=== PATIENT | female | born 1965 | race Caucasian/White ===

== ENCOUNTER 2019-03-18 05:08 | Inpatient (IN) | payer SELFPAY ==
[2019-03-18 07:34] LABS: Iron 14 ug/dL (50-170); Iron Binding Capacity, Total 500 mcg/dL (265-497)
[2019-03-18 07:37] LABS: PTT 29.9 SEC (22.9-36.1); Prothrombin Time 13.5 SEC (12.0-14.7)
[2019-03-18 07:40] LABS: #Basophils 0.1 thou/uL (0.0-0.2); #Eosinphils 0.1 thou/uL (0.0-0.7); #Lymphocytes 1.7 thou/uL (1.20-3.40); #Monocytes 0.4 thou/uL (0.11-0.59); #Neutrophils 1.3 thou/uL (1.40-6.50); %Basophils 2.3 % (0.0-1.0); %Eosinophils 3.6 % (0.0-10.0); %Lymphocytes 46.6 % (21.0-51.0); %Monocytes 11.8 % (0.0-10.0); %Neutrophils 35.8 % (42.0-75.0); Hemoglobin 9.4 g/dL (12.0-16.0); MDiff Complete? YES; Mean Corpuscular HGB CONC 31.8 g/dL (32.0-36.0); Mean Corpuscular Volume 72.2 fL (78.0-98.0); Mean Platelet Volume 8.2 fL (7.4-10.4); Microcytosis SLIGHT = 6-15 cells (100X) (0-5/hpf); Platelet Count 261 thou/uL (130-400); RBC Distribution Width 20.5 % (11.5-14.5); Red Blood Cell (RBC) Count 4.07 mill/uL (4.20-5.40); Target Cells SLIGHT = 2-5 cells (100X) (0-1/hpf); White Blood Cell (WBC) Count 3.7 thou/uL (4.8-10.8)
[2019-03-18 09:19] VITALS: BMI 23.3
[2019-03-18] MEDS ORDERED: Sodium Chloride 0.9% 1,000 ML IV SCH (10:02)
[2019-03-18] MEDS ORDERED: Acetaminophen 325 MG TAB PO PRN (10:02)
[2019-03-18] MEDS ORDERED: Ondansetron PF 4 MG/2 ML Vial IVP PRN ×2 (10:02→15:57)
[2019-03-18] MEDS ORDERED: Ondansetron HCl/PF 4 MG/2 ML Vial IVP PRN (12:12)
[2019-03-18] MEDS ORDERED: PROPOFOL 200 MG/20 ML VIAL ONE (13:11)
[2019-03-18] MEDS ORDERED: Bisacodyl 5 MG TAB PO PRN (15:57)
[2019-03-18] MEDS ORDERED: Iron Sucrose Complex 200 MG in Sodium Chloride 0.9% 250 ML 250 ML IVPB SCH (16:00)
[2019-03-18] MEDS ORDERED: Iron, Sodium Ferric Gluconate 250 MG in Sodium Chloride 0.9% 100 ML IVPB SCH (16:15)
--- NOTE | 2019-03-18 16:19 | HP ---
PRIMARY CARE PROVIDER: None. CHIEF COMPLAINT: Abdominal pain. HISTORY OF PRESENT ILLNESS: Ms. Lucas is a pleasant 53-year-old lady, who was seen at [facility] on March 18, 2019. On , she had lunch. While eating lunch, she started having nausea and vomiting. She reports vomiting multiple times. She also reports abdominal pain , epigastric, burning as well as sharp, 7/10 at its worst, accompanied by nausea and vomiting, with no known aggravating or relieving factors. The following day, she started having diarrhea. She reports multiple dark stools. She presented to the emergency room because of ongoing abdominal pain, vomiting, and diarrhea. Please note that she initially presented to the emergency room at [place] and was subsequently transferred to this facility. REVIEW OF SYSTEMS: All other systems were reviewed and found to be negative. PAST MEDICAL HISTORY: Peptic ulcer disease and hypothyroidism. PAST SURGICAL HISTORY: Gastric bypass surgery, bowel obstruction surgery, hysterectomy, cholecystectomy, and what appears to be volvulus surgery. SOCIAL HISTORY: The patient drinks 10 to 15 beers a day. She denies recreational drug use or tobacco use. FAMILY HISTORY: Significant for cerebrovascular accident and coronary artery disease in her mother. ALLERGIES: SULFA. CURRENT MEDICATIONS: None. PHYSICAL EXAMINATION: GENERAL: On examination, Ms. Lucas is awake and alert, not in acute distress. VITAL SIGNS: Blood pressure is 169/88, pulse 79, respiratory rate 14, and oxygen saturation 96% on room air. Temperature is 99.1 degrees Fahrenheit. BMI is 23.4. EYES: No scleral icterus. No conjunctival pallor. ENT: Moist mucosal membranes. No oropharyngeal erythema or exudates. NECK: Supple, nontender. Trachea is midline. RESPIRATORY: Accessory muscles of breathing are not active. Chest wall movements are symmetric bilaterally. Lungs are clear to auscultation without wheeze, rhonchi, or crepitations. CARDIOVASCULAR: S1 and S2 are heard, regular. Peripheral pulses palpable. No carotid bruit. No pericardial rub. ABDOMEN: Mild epigastric tenderness. No guarding or rigidity. Bowel sounds heard. NEUROLOGIC: Cranial nerves 2 through 12 intact, deep tendon reflexes 2+. MUSCULOSKELETAL: Power is 5/5 in all 4 extremities. SKIN: No rashes or subcutaneous nodules. LYMPHATIC: No cervical lymphadenopathy. PSYCHIATRIC: Normal mood, normal affect. The patient is oriented to person, place, and time. LABORATORY DATA: Ms. Lucas's labs and investigations were reviewed. Microcytic anemia with hemoglobin 9.4, leukopenia with white count 3700, normal platelet count. INR 1.0. Decreased iron of 14, elevated TIBC of 500, and normal ferritin of 17.44. She is mildly hyponatremic with a sodium of 134, normal potassium, normal creatinine, normal total bilirubin, elevated AST of 78, normal ALT, normal alkaline phosphatase, and normal troponin I. Lipase is elevated at 193. ASSESSMENT AND PLAN: Ms. Lucas is a pleasant 53-year-old lady, who was seen at [facility] on March 18, 2019. Her problem list includes: 1. Nausea and vomiting: Ms. Lucas is presenting to the emergency room with nausea and vomiting, most likely secondary to acute pancreatitis, given her elevated lipase level. She will be admitted to the hospital for further management. Gastroenterology Service is being consulted for opinion and help with management. 2. Gastrointestinal bleed: Suspected, based on the patient's anemia as well as history of dark stools. We will await GI Service input. 3. Hyponatremia: Mild, likely asymptomatic. 4. Hypothyroidism: The patient is not taking any medications for hypothyroidism , although she reports having a history of hypothyroidism. We will check TSH level. 5. Iron deficiency: We will administer intravenous iron and start her on oral iron. 6. Daily alcohol use: The patient has been counseled regarding alcohol cessation. We will start her on ASE protocol. Many thanks for allowing me to participate in your patient's care. Please feel free to contact me with any questions or concerns. LEVEL OF RISK: Moderate. LEVEL OF COMPLEXITY: Moderate. Job ID: [id number] MTDD
[2019-03-18] MEDS: Pantoprazole 80 MG in Sodium Chloride 0.9% 100 ML IVP SCH (16:56)
[2019-03-18] MEDS: Ferrous Sulfate 325 MG TAB PO SCH (16:56)
[2019-03-18] MEDS: Ondansetron ODT 4 MG TAB SL PRN (16:57)
[2019-03-18] MEDS: Morphine 4 MG/ML VIAL SLOW IVP PRN ×2 (16:57→21:09)
[2019-03-18] MEDS ORDERED: Nicotine 21 MG PATCH TD SCH (17:00)
[2019-03-18] MEDS: Sodium Chloride 0.9% 1,000 ML IV SCH (17:08)
[2019-03-19] MEDS: Sodium Chloride 0.9% 1,000 ML IV SCH ×2 (01:07→17:38)
[2019-03-19] MEDS: Pantoprazole 80 MG in Sodium Chloride 0.9% 100 ML IVP SCH (01:35)
[2019-03-19] MEDS: Morphine 4 MG/ML VIAL SLOW IVP PRN ×5 (03:11→21:44)
[2019-03-19 04:54] LABS: #Basophils 0.1 thou/uL (0.0-0.2); #Eosinphils 0.1 thou/uL (0.0-0.7); #Lymphocytes 1.7 thou/uL (1.20-3.40); #Monocytes 0.7 thou/uL (0.11-0.59); #Neutrophils 3.8 thou/uL (1.40-6.50); %Basophils 1.1 % (0.0-1.0); %Eosinophils 1.7 % (0.0-10.0); %Lymphocytes 26.1 % (21.0-51.0); %Monocytes 11.4 % (0.0-10.0); %Neutrophils 59.8 % (42.0-75.0); Hemoglobin 9.2 g/dL (12.0-16.0); Mean Corpuscular HGB CONC 31.4 g/dL (32.0-36.0); Mean Corpuscular Volume 73.4 fL (78.0-98.0); Mean Platelet Volume 8.5 fL (7.4-10.4); Platelet Count 246 thou/uL (130-400); RBC Distribution Width 20.5 % (11.5-14.5); Red Blood Cell (RBC) Count 3.99 mill/uL (4.20-5.40); White Blood Cell (WBC) Count 6.4 thou/uL (4.8-10.8)
[2019-03-19 05:19] LABS: ALT (SGPT) 34 U/L (8-55); AST (SGOT) 72 U/L (5-34); Albumin 3.8 g/dL (3.5-5.0); Alkaline Phosphatase 83 U/L (40-150); Anion Gap 13 mmol/L (10-20); BUN (Urea Nitrogen) Less than 4 mg/dL (9.8-20.1); Calc. Creatinine Clearance 108 mL/min (70-130); Calcium 8.1 mg/dL (7.8-10.44); Carbon Dioxide 25 mmol/L (22-29); Chloride 101 mmol/L (98-107); Estimated GFR-MDRD Greater than 90; Globulin 3.1 g/dL (2.4-3.5); Glucose 79 mg/dL (70-105); Lipase 158 U/L (8-78); Protein, Total 6.9 g/dL (6.0-8.3); Sodium 136 mmol/L (136-145)
[2019-03-19] MEDS: Ondansetron ODT 4 MG TAB SL PRN (08:01)
[2019-03-19] MEDS: Ferrous Sulfate 325 MG TAB PO SCH ×2 (08:01→17:31)
--- NOTE | 2019-03-19 13:43 | CON ---
DATE OF CONSULTATION: 03/18/2019 REASON FOR CONSULTATION: Abdominal pain, history of passing black tarry stool. HISTORY OF PRESENT ILLNESS ON ADMISSION: Brielle Lucas is a 53-year-old female, seen in the ER today with abdominal pain and also history of passing black tarry stool. The patient has past history of bleeding peptic ulcer in the past. Her last EGD was done not in this hospital and somewhere else and she does not really know exactly where it was. She thinks it was done in [facility]. The patient has been having abdominal pain over the last couple of weeks. The pain is over the epigastric area. The pain is localized and burning in nature and at times crampy in nature. Her tells me that every time she tries to eat even small amount of meat, after a while the food comes up. She had no painful swallowing. The patient is status post gastric bypass in [place], I believe in 2005 and had another surgery because of some adhesions and had laparotomy subsequently. The patient is also status post laparoscopic cholecystectomy. The patient was hospitalized here in this hospital in 2017 with a bowel obstruction. She was seen by Dr. Steff Whitman and underwent surgery and was found to have bowel obstruction at the small bowel. She underwent a segmental resection of small bowel at that time. The patient's bowel movements are fairly regular. She has had no stool over the last 48 hours. The last BM was about 2 days ago on Tuesday. The patient also has previous history of pancreatitis in the past. The other relevant history is that she was hospitalized in 2013 with attempted suicide, and she took multiple doses of Effexor. Apparently, she has history of depression and anxiety. She has no other relevant history. ALLERGIES: SULFA AND HYDROCODONE. SOCIAL HISTORY: The patient is remarried. Her now is Lance. Her old name was Brielle Servin. She has not been a smoker. Denies drug abuse. However, she does drink alcohol as much as 20 to 30 cans of beer everyday. MEDICAL ILLNESS: 1. Anxiety and depression. 2. Obesity, status post gastric bypass with weight loss of more than 100 pounds. 3. Past history of bleeding peptic ulcer. 4. Laparotomy for bowel obstruction in [address] Whitman. 5. Status post laparoscopy cholecystectomy. She has no hypertension, diabetes, or asthma, etc. FAMILY HISTORY: There is a strong family history of heart disease on mother side. There is also a questionable history that her mother had some brain tumor. MEDICATION LIST: Reviewed. REVIEW OF SYSTEMS: A 10-point system reviewed. 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 No TIA. No syncope. No dizziness. RESPIRATORY: No history of chronic cough, hemoptysis, or dyspnea. CARDIOVASCULAR: No chest pain. No palpitation. No dyspnea, orthopnea, or PND. GI: Abdominal pain which is chronic in nature. History of nausea, vomiting, and also black tarry stool. : No dysuria, hematuria, or frequent urination. MUSCULOSKELETAL: Unremarkable. NEUROENDOCRINE: Unremarkable. HEMATOLOGIC: Unremarkable. PSYCHIATRIC: Past history of depression and anxiety. She is not on any medications at this time. HEENT: Unremarkable. PHYSICAL EXAMINATION: GENERAL: She appears very comfortable. No distress. VITAL SIGNS: Afebrile. Pulse is 69, blood pressure 156/76. HEENT: Conjunctivae are clear. NECK: Supple. No adenitis or thyromegaly noted. CARDIOVASCULAR: First second heart sounds heard. LUNGS: Clear to auscultation. ABDOMEN: Soft. Abdomen is nondistended. Abdomen is tender over the epigastric area. There is no rebound or guarding. No organomegaly or masses. Bowel sounds normal. EXTREMITIES: Reveal no edema. LABORATORY DATA: CBC; WBC 3700, hemoglobin 9.4, hematocrit 29.4, MCV 72.2, platelet count 261,000, polymorphs 35, lymphocytes 46, monocytes 11. Serum iron is very low at 10 to 14 and TIBC very high at 500, but her ferritin level is 17.44. I do not see the chemistry panel in the lab. CLINICAL IMPRESSION: A 53-year-old female with abdominal pain, nausea, vomiting, history of black tarry stool. She has had no stool over the last 48 hours. Her blood count is slightly low, but not terribly low. She has a past history of peptic ulcer and also has past history of pancreatitis. 1. Status post gastric bypass surgery. 2. Status post laparotomy for bowel obstruction in 2017. 3. Status post laparoscopic cholecystectomy. 4. Anxiety and depression. 5. Alcohol abuse. PLAN: 1. PPI. 2. We will plan for EGD later on today and I will make further recommendation. Because of , I believe she should probably have a colonoscopy during this admission. Job ID: [id number]
--- NOTE | 2019-03-19 14:37 | OP ---
DATE OF PROCEDURE: 03/18/2019 PROCEDURE PERFORMED: Esophagogastroduodenoscopy. PREOPERATIVE DIAGNOSES: A 53-year-old female with abdominal pain, history of black tarry stool, and anemia. She has had a previous gastric bypass surgery. The patient underwent EGD because of abdominal pain and history of black tarry stool. POSTOPERATIVE DIAGNOSIS: 1. Normal esophageal mucosa. 2. The anastomotic area appears healthy and does not show any inflammation or any ulceration. 3. Both afferent and efferent loop entered without difficulty. No pathology seen. DESCRIPTION OF PROCEDURE: The patient was placed on the left lateral position and was given sedation by Anesthesia Department. A Pentax video gastroscope under direct vision passed down the oropharynx past the GE junction. The patient has had a previous gastric bypass. The anastomotic area appears healthy except for large amount of mucus. Water was irrigated and washed out. . The anastomotic area appeared very healthy. Both afferent and efferent loop entered without difficulty. The afferent loop looked healthy and no pathology. The efferent loop . I do not see any pathology in the jejunum. appeared normal. OVERALL IMPRESSION: Negative exam. RECOMMENDATIONS: 1. Clear liquid diet. 2. Obtain chemistry panel and serum lipase. 3. Follow up H and H. Job ID: [id number]
[2019-03-19] MEDS: Potassium Chloride 20 MEQ TAB PO SCH ×2 (17:31→20:27)
--- NOTE | 2019-03-19 21:13 | PDOC.PN ---
- Subjective Encounter Start Date: 03/19/19 Encounter Start Time: 20:35 Subjective: f/u for abd pain and likely pancreatitis with negative findings on EGD. -: Feels better overall with conservative mgmt and attempting soft diet -: this pm. - Objective MAR Reviewed: Yes Vital Signs & Weight: Vital Signs (12 hours) Temp Pulse Resp BP BP BP Pulse Ox 03/19/19 20:00 98.3 F 61 20 164/84 H 164/84 H 99 03/19/19 16:00 98.2 F 63 16 145/67 H 100 03/19/19 12:00 99.1 F 67 18 150/76 H 100 Weight Admit Weight 149 lb 6.4 oz Weight 149 lb 6.4 oz I&O: 03/18/19 03/19/19 03/20/19 06:59 06:59 06:59 Intake Total 3220 2976 Balance 3220 2976 Result Diagrams: 03/19/19 04:09 03/19/19 04:09 Additional Labs: Laboratory Tests 03/18/19 03/18/19 03/18/19 01:05 07:03 07:03 WBC 3.7 L Hgb 9.4 L MCV 72.2 L Potassium 3.8 Iron 14 L TIBC 500 H Ferritin Total Bilirubin AST ALT Lipase TSH 3rd Generation 03/18/19 03/18/19 03/18/19 07:03 16:18 16:18 WBC Hgb MCV Potassium Iron TIBC Ferritin 17.44 Total Bilirubin AST ALT Lipase 146 H TSH 3rd Generation 5.3452 H 03/19/19 04:09 WBC Hgb MCV Potassium Iron TIBC Ferritin Total Bilirubin 1.0 AST 72 H ALT 34 Lipase 158 H TSH 3rd Generation Radiology Reviewed by me: Yes (EGD - negative) Phys Exam - Physical Examination Constitutional: NAD HEENT: PERRLA, sclera anicteric, oral pharynx no lesions Neck: no nodes, no JVD, supple, full ROM Respiratory: no wheezing, no rales, no rhonchi, clear to auscultation bilateral S1, S2 Cardiovascular: RRR, no significant murmur, no rub, gallop mild TTP in mid-epigastrium Gastrointestinal: soft, no distention, positive bowel sounds Musculoskeletal: no edema, pulses present Neurological: normal sensation, moves all 4 limbs Psychiatric: A&O x 3 Skin: normal turgor, cap refill <2 seconds Dx/Plan (1) Epigastric abdominal pain Code(s): R10.13 - EPIGASTRIC PAIN Status: Acute Comment: Secondary to #1, improved with conservative mgmt (2) Acute pancreatitis Code(s): K85.90 - ACUTE PANCREATITIS WITHOUT NECROSIS OR INFECTION, UNSP Status: Acute Qualifiers: Pancreatitis type: alcohol induced Comment: Suspected ETOH etiology, counseling regarding cessation, supportive mgmt (3) Hypokalemia Code(s): E87.6 - HYPOKALEMIA Status: Acute Comment: KCL supplementation, repeat K+ level in am (4) Iron deficiency anemia Code(s): D50.9 - IRON DEFICIENCY ANEMIA, UNSPECIFIED Status: Chronic Qualifiers: Iron deficiency anemia type: inadequate dietary iron intake Qualified Code( s): D50.8 - Other iron deficiency anemias Comment: FeSO4 325mg BID - Plan social 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
[2019-03-20] MEDS: Pantoprazole 80 MG in Sodium Chloride 0.9% 100 ML IVP SCH (03:20)
[2019-03-20] MEDS: Morphine 4 MG/ML VIAL SLOW IVP PRN (04:17)
[2019-03-20 05:50] LABS: Anion Gap 13 mmol/L (10-20); BUN (Urea Nitrogen) Less than 4 mg/dL (9.8-20.1); Calc. Creatinine Clearance 114 mL/min (70-130); Calcium 8.4 mg/dL (7.8-10.44); Carbon Dioxide 23 mmol/L (22-29); Chloride 107 mmol/L (98-107); Estimated GFR-MDRD Greater than 90; Glucose 86 mg/dL (70-105); Lipase 115 U/L (8-78); Potassium 3.5 mmol/L (3.5-5.1); Sodium 139 mmol/L (136-145)
[2019-03-20] MEDS: Sodium Chloride 0.9% 1,000 ML IV SCH (06:06)
[2019-03-20 07:36] VITALS: BP 136/67; TEMP 98.5
[2019-03-20] MEDS: Ferrous Sulfate 325 MG TAB PO SCH (07:38)
--- NOTE | 2019-03-20 08:19 | PRG ---
DATE OF SERVICE: 03/19/2019 SUBJECTIVE: This is a 53-year-old female with chronic alcohol abuse, persistent abdominal pain, nausea, and vomiting. She also has a history of passing black stools. An EGD done yesterday, which revealed no pathology. The patient has a previous gastric bypass surgery. The esophageal lumen no pathology. The patient also has abdominal pain. Her serum lipase is slightly elevated. The lipase is 158 today. Her liver function tests are normal except for AST of 72. Serum lytes shows potassium 3, otherwise the lytes are normal. The patient has hypothyroidism before she stopped medication for a while. Her TSH level is high at 5.34. Her CBC today shows no change from admission. Hemoglobin 9.2, hematocrit 29.3. OBJECTIVE: GENERAL: Appears comfortable, in no acute distress. VITAL SIGNS: Afebrile. Pulse is 63, blood pressure 145/67. HEENT: Conjunctivae clear. CARDIOVASCULAR SYSTEM: First and second heart sounds heard. LUNGS: Clear to auscultation. ABDOMEN: Soft. No organomegaly. Minimally tender in the epigastric area . IMPRESSION: 1. Abdominal pain, possibly related to mild pancreatitis. The lab numbers are really not that high. 2. History of alcohol abuse. 3. Previous gastric bypass surgery. RECOMMENDATIONS: 1. May consider starting the patient on Synthroid because of history of hypothyroidism and elevated TSH. 2. Replace potassium. 3. Advance diet to regular diet and see how she tolerates. Job ID: [id number]
--- NOTE | 2019-03-20 11:03 | PRG ---
DATE OF SERVICE: 03/20/2019 SUBJECTIVE: This is a 53-year-old female, hospitalized with abdominal pain, nausea, vomiting, and history of black tarry stool. She had an EEG done over the weekend, which was negative. Serum lipase is slightly elevated. She has history of chronic alcohol intake and she drank as much as 20 to 30 cans of beer. Abdominal pain markedly improved. She does not have any nausea or vomiting. She was started on a regular diet yesterday and she is tolerating diet. This morning, she had a stool and stool is normal in color. PHYSICAL EXAMINATION: GENERAL: She appears very comfortable. VITAL SIGNS: Afebrile, pulse is 61, blood pressure 136/67. CARDIOVASCULAR: First and second heart sounds normal. LUNGS: Clear to auscultation. ABDOMEN: Soft. No organomegaly. No tenderness. No masses. RECOMMENDATIONS: 1. Iron supplement. 2. May have to start the patient back on Synthroid. 3. From GI standpoint, the patient can be discharged home today. The patient has low serum iron, most likely from malabsorption because of gastric bypass. I also advised Ms. Lucas not to drink any alcohol. From GI standpoint, she can be discharged home and she is anxious to go home. Job ID: [id number]
--- NOTE | 2019-03-21 00:50 | DIS ---
DATE OF ADMISSION: 03/18/2019 DATE OF DISCHARGE: 03/20/2019 CONDITION: At the time of discharge, stable and improved. DISCHARGE DISPOSITION: Home. PRIMARY CARE PHYSICIAN: None. The patient is encouraged to follow up at [facility]. DISCHARGE DIAGNOSES: 1. Subacute epigastric pain, suspected acute pancreatitis. 2. Hypokalemia, resolved. 3. Chronic iron deficiency anemia. 4. History of alcohol abuse. 5. History of peptic ulcer disease. 6. Gastric bypass surgery. 7. Bowel obstruction surgery. 8. Bowel volvulus possibly leading to bowel obstruction. 9. Hypothyroidism. DISCHARGE MEDICATIONS: 1. Levothyroxine 50 mcg daily. 2. Protonix 40 mg daily. 3. Multivitamin with iron daily, [id number]. IN-HOUSE CONSULTATION: Gastroenterology, Dr. Ramirez. PROCEDURES DONE IN THE HOSPITAL: EGD which showed mild gastritis, otherwise no acute anomaly. Anastomotic area appears healthy and without inflammation. HISTORY OF PRESENTING ILLNESS: Ms. Lucas is a 53-year-old female with past medical history of gastric obstruction, volvulus, and gastric bypass surgery as well as alcoholism, who presented to the ER with complaints of vomiting, abdominal pain in epigastrium with dark stools. She was found to have a hemoglobin of 9.4, leukopenia with WBC 3700 and elevated AST of 78 and lipase at 193. She was admitted with a presumptive diagnosis of acute pancreatitis, likely due to alcoholism. Please see H and P dictated by Dr. Acevedo on 03/18/2019, for full details. HOSPITAL COURSE: GI was consulted and Dr. Lopez saw the patient. He took her for EGD given her complicated gastric bypass surgery. She was not having any melena or hematochezia. Her H and H remained stable. She was started on PPIs. EGD was unremarkable. I am not sure if biopsies were taken or not. She remained otherwise hemodynamically stable and diet was slowly advanced and she tolerated a regular diet this morning. She was diagnosed with possibly mild acute pancreatitis. Her discharge lipase was 115. Her potassium was replaced as it was low upon presentation and was 3.5 on the day of discharge. She had been given IV iron for an iron level of 114. All of her other workup was rather unremarkable. She feels well and will be discharged. GI has cleared her for discharge as well. She will be started on low-dose levothyroxine and is encouraged to establish care with [facility] for repeat TSH check in 6 weeks. Her TSH in this hospitalization was 5.34 and she has a history of hypothyroidism, but has not been able to take her medications for a while. PHYSICAL EXAMINATION: She was seen and examined prior to discharge. VITAL SIGNS: Stable. ABDOMEN: Soft, nontender, nondistended. EXTREMITIES: Without any clubbing or edema. HEART: Rate and rhythm regular. CHEST: Clear to auscultation. DISCHARGE PLAN: Discharge plan was discussed with the patient who verbalized understanding. TIME SPENT: Total time spent in the discharge 32 minutes. Job ID: [id number]
== END 2019-03-20 12:05 | disposition home or self-care (01) | DRG 439 ==
LOC: ERS 05:08 → 2NO 07:11
PROVIDERS: ADMIT Internal Medicine; ATTEND Internal Medicine
PROC: 3E1G88Z Irrigation of Upper GI using Irrigating Substance, Via Natural or Artificial Opening Endoscopic (ICD-10-PCS; principal; 2019-03-18)
DX: K85.20 Alcohol induced acute pancreatitis without necrosis or infection (principal); E87.1 Hypo-osmolality and hyponatremia; F10.188 Alcohol abuse with other alcohol-induced disorder; E03.9 Hypothyroidism, unspecified; D50.9 Iron deficiency anemia, unspecified; K29.70 Gastritis, unspecified, without bleeding; Z87.11 Personal history of peptic ulcer disease; Z90.710 Acquired absence of both cervix and uterus; Z90.49 Acquired absence of other specified parts of digestive tract; Z88.2 Allergy status to sulfonamides
CPT/HCPCS: 36415; 80048; 80053; 82728; 83540; 83550; 83690; 84443; 85025; 86850; 86900; 86901; 90471; 90732; 99285; C9113; G0009; J2270; J2405; J2704; J2916; J3490; Q0162